=== PATIENT | female | born 1990 | race Caucasian/White ===

== ENCOUNTER 2017-03-16 15:04 | Emergency (ER) | payer SELFPAY ==
[2017-03-16 15:49] LABS: BASOPHILS 0.4 % (0-2); EOSINOPHILS 3.6 % (0-7); HEMATOCRIT 46.1 % (36.0-48.0); HEMOGLOBIN 15.9 g/dL (12-16); IMMATURE GRANULOCYTES 0.3 % (0-5); LYMPHOCYTES 21.1 % (15-50); MCH 33.5 pg (26.0-34.0); MCHC 34.5 g/dL (31.0-37.0); MCV 97.3 fL (80.0-100.0); MONOCYTES 9.6 % (2-11); PLATELET COUNT 375 10x3/uL (130-400); RBC 4.74 10x6/uL (4.00-5.40); RDW 12.7 % (11.5-14.5); WBC 11.4 10x3/uL (4.8-10.8)
[2017-03-16 16:16] LABS: APPEARANCE HAZY (CLEAR); BILIRUBIN NEGATIVE (NEGATIVE); COLOR YELLOW (YELLOW); GLUCOSE NEGATIVE (NEGATIVE); KETONE NEGATIVE (NEGATIVE); NITRITE NEGATIVE (NEGATIVE); PROTEIN NEGATIVE (NEGATIVE); UROBILINOGEN NORMAL (NORMAL)
[2017-03-16 16:18] LABS: RED CELLS - URINE 0-5 /hpf (0-5)
[2017-03-16 16:19] LABS: BACTERIA MANY /hpf (NONE SEEN)
[2017-03-16 16:29] LABS: HCG SERUM NEGATIVE (NEGATIVE)
== END 2017-03-16 16:42 | disposition home or self-care (01) ==
LOC: D.ER 15:04
PROVIDERS: Emergency Medicine; Nurse Practitioner Acute Care
DX: N39.0 Urinary tract infection, site not specified (principal); N92.6 Irregular menstruation, unspecified; R10.2 Pelvic and perineal pain; F17.200 Nicotine dependence, unspecified, uncomplicated